=== PATIENT | female | born 1935 | race Caucasian/White ===

== ENCOUNTER 2021-11-06 13:54 | Inpatient (IN) ==
[2021-11-06 17:05] LABS: Bacteria,Urine Few per hpf (None-Few); Bilirubin,Urine Negative (Negative); Blood,Urine Large (Negative); Budding Yeast,Urine Few per hpf (None Seen); Clarity,Urine Turbid (Clear); Color,Urine Yellow (Yellow); Glucose,Urine (UA) 30 mg/dL (Normal); Ketones,Urine Trace mg/dL (Negative); Leukocyte Esterase,Urine Negative (Negative); Mucus,Urine Moderate per lpf (None-Few); Nitrite,Urine Negative (Negative); Protein,Urine 200 mg/dL (Neg-Trace); RBC,Urine 50-100 per hpf (0-3); Specific Gravity,Urine > 1.030 (1.010-1.025); Squamous Epithelial Cell,Urine Many per hpf (None-Few); Urobilinogen,Urine Normal (Normal)
[2021-11-06] MEDS ORDERED: Gabapentin 100 MG CAPSULE PO ONE (17:40)
[2021-11-06] MEDS ORDERED: *HR* OxyCODONE/APAP 7.5/325 TABLET PO STA (17:40)
[2021-11-06 17:41] LABS: Hematocrit 41.6 % (35.3-44.9); Hemoglobin 14.4 g/dL (11.5-15.4); Mean Corpuscular HGB Conc 34.6 g/dL (31.6-35.5); Mean Corpuscular Hemoglobin 32.1 pg (28.0-33.3); Mean Corpuscular Volume 92.9 fL (83.0-100.0); Mean Platelet Volume 9.9 fL (9.4-12.4); Platelet Count 232 K/mcL (140-400); Red Blood Count 4.48 M/mcL (3.82-4.97); Red Cell Distribution Width 13.1 % (11.5-14.5); White Blood Count 9.8 K/mcL (4.3-11.1)
[2021-11-06 19:07] LABS: Alanine Aminotransferase 27 Units/L (7-52); Albumin 3.8 g/dL (3.5-5.7); Albumin/Globulin Ratio 1.4 (1.1-2.2); Alkaline Phosphatase 57 Units/L (34-104); Aspartate Amino Transferase 89 Units/L (13-39); BUN/Creatinine Ratio 44 (6-26); Bilirubin,Direct 0.1 mg/dL (0.0-0.2); Bilirubin,Indirect 1.3 mg/dL (0.0-1.0); Bilirubin,Total 1.4 mg/dL (0.3-1.0); Blood Urea Nitrogen 45 mg/dL (8-23); Calcium 10.2 mg/dL (8.6-10.3); Carbon Dioxide 20 mEq/L (23-29); Chloride 110 mEq/L (98-107); Creatine Kinase 3877 Units/L (30-223); Globulin 2.7 g/dL (2.4-3.5); Glucose 165 mg/dL (70-105); Osmolality,Calculated 305 (280-300); Potassium 5.2 mEq/L (3.5-5.1); Sodium 140 mEq/L (136-145); Total Protein 6.5 g/dL (6.4-8.9); eGFR For African Americans > 60 (> 60); eGFR For Non-African Americans 51 (> 60)
[2021-11-06] MEDS ORDERED: 0.9 % Sodium Chloride 1,000 ML IVC ONE (20:15)
[2021-11-06] MEDS ORDERED: 0.9 % Sodium Chloride 500 ML IVC ONE (20:16)
[2021-11-06] MEDS: Iopamidol - 370 500 ML MLS IVP ONE ×2 (21:20→21:25)
[2021-11-06] MEDS ORDERED: Acetaminophen 325 MG TABLET PO PRN (22:23)
[2021-11-06] MEDS ORDERED: Melatonin 3 MG TABLET PO PRN (22:23)
[2021-11-06] MEDS ORDERED: Naloxone 0.4 MG/ML INJ IVP PRN (22:23)
[2021-11-06] MEDS ORDERED: Ondansetron 4 MG/2 ML VIAL IVP PRN (22:23)
[2021-11-06] MEDS: 0.9 % Sodium Chloride 1,000 ML IVC SCH (23:16)
[2021-11-07] MEDS: 0.9 % Sodium Chloride 1,000 ML IVC SCH ×2 (03:56→22:51)
[2021-11-07] MEDS ORDERED: 0.9 % Sodium Chloride 1,000 ML IVC ONE (05:41)
[2021-11-07 07:31] LABS: Basophils # 0.1 K/mcL (0.0-0.2); Basophils % 0.7 %; Eosinophils # 0.1 K/mcL (0.0-0.6); Eosinophils % 0.7 %; Hematocrit 37.4 % (35.3-44.9); Immature Granulocytes % 1.1 % (0-4); Lymphocytes # 2.1 K/mcL (0.6-4.6); Lymphocytes % 25.8 %; Mean Corpuscular HGB Conc 34.2 g/dL (31.6-35.5); Mean Corpuscular Hemoglobin 31.9 pg (28.0-33.3); Mean Corpuscular Volume 93.3 fL (83.0-100.0); Mean Platelet Volume 10.9 fL (9.4-12.4); Monocytes # 0.9 K/mcL (0.0-1.3); Monocytes % 11.3 %; Nucleated Red Blood Cells 0.2 /100 WBC (0); Platelet Count 183 K/mcL (140-400); Red Blood Count 4.01 M/mcL (3.82-4.97); Red Cell Distribution Width 13.2 % (11.5-14.5); Segmented Neutrophils % 60.4 %; White Blood Count 8.2 K/mcL (4.3-11.1)
[2021-11-07 07:32] LABS: Hemoglobin 12.8 g/dL (11.5-15.4)
[2021-11-07 08:19] LABS: Alanine Aminotransferase 27 Units/L (7-52); Albumin 3.2 g/dL (3.5-5.7); Albumin/Globulin Ratio 1.5 (1.1-2.2); Alkaline Phosphatase 54 Units/L (34-104); Aspartate Amino Transferase 80 Units/L (13-39); BUN/Creatinine Ratio 50 (6-26); Blood Urea Nitrogen 40 mg/dL (8-23); Calcium 8.5 mg/dL (8.6-10.3); Carbon Dioxide 18 mEq/L (23-29); Chloride 114 mEq/L (98-107); Creatine Kinase 2752 Units/L (30-223); Globulin 2.2 g/dL (2.4-3.5); Glucose 89 mg/dL (70-105); Osmolality,Calculated 303 (280-300); Phosphorous 2.2 mg/dL (2.7-4.5); Potassium 4.4 mEq/L (3.5-5.1); Sodium 142 mEq/L (136-145); Total Protein 5.4 g/dL (6.4-8.9); eGFR For African Americans > 60 (> 60); eGFR For Non-African Americans > 60 (> 60)
[2021-11-07] MEDS ORDERED: Perflutren Lipid Microsphere 1.3 ML in 0.9 % Sodium Chloride 8.7 ML IVP PRN (11:22)
[2021-11-07] MEDS ORDERED: *HR* OxyCODONE Immed Rel 5 MG TABLET PO PRN (14:02)
[2021-11-07] MEDS ORDERED: Sennosides/Docusate Sodium TABLET PO PRN ×2 (18:24→21:00)
[2021-11-07] MEDS: Isosorbide MONOnitrate (24 HR) 60 MG TAB.ER.24H PO SCH (18:36)
[2021-11-07] MEDS: polyethylene glycoL 3350 17 GM POWD.PACK PO SCH (18:36)
[2021-11-07] MEDS: Gabapentin 100 MG CAPSULE PO SCH (20:26)
[2021-11-07] MEDS: QUEtiapine Fumarate 25 MG TABLET PO SCH (23:11)
[2021-11-08] MEDS: Aspirin Enteric Coated 81 MG Tablet PO SCH (09:30)
[2021-11-08] MEDS: Gabapentin 100 MG CAPSULE PO SCH ×3 (09:30→20:43)
[2021-11-08] MEDS: Loratadine 10 MG TABLET PO SCH (09:30)
[2021-11-08] MEDS: Isosorbide MONOnitrate (24 HR) 60 MG TAB.ER.24H PO SCH (09:30)
[2021-11-08] MEDS: polyethylene glycoL 3350 17 GM POWD.PACK PO SCH (09:31)
[2021-11-08 11:00] LABS: BUN/Creatinine Ratio 42 (6-26); Blood Urea Nitrogen 28 mg/dL (8-23); Calcium 8.7 mg/dL (8.6-10.3); Carbon Dioxide 23 mEq/L (23-29); Chloride 109 mEq/L (98-107); Creatine Kinase 2882 Units/L (30-223); Glucose 149 mg/dL (70-105); Osmolality,Calculated 294 (280-300); Potassium 3.3 mEq/L (3.5-5.1); Sodium 138 mEq/L (136-145); eGFR For African Americans > 60 (> 60); eGFR For Non-African Americans > 60 (> 60)
[2021-11-08 12:57] LABS: Troponin I 0.28 ng/mL (< 0.04)
[2021-11-08] MEDS ORDERED: *HR* OxyCODONE/APAP 7.5/325 TABLET PO PRN (13:09)
[2021-11-08] MEDS: 0.9 % Sodium Chloride 1,000 ML IVC SCH ×2 (15:04→20:43)
[2021-11-08] MEDS: QUEtiapine Fumarate 25 MG TABLET PO SCH (20:43)
[2021-11-09] MEDS: 0.9 % Sodium Chloride 1,000 ML IVC SCH (00:12)
[2021-11-09 03:22] LABS: BUN/Creatinine Ratio 33 (6-26); Blood Urea Nitrogen 20 mg/dL (8-23); Calcium 8.4 mg/dL (8.6-10.3); Carbon Dioxide 21 mEq/L (23-29); Chloride 113 mEq/L (98-107); Creatine Kinase 1782 Units/L (30-223); Glucose 101 mg/dL (70-105); Osmolality,Calculated 293 (280-300); Potassium 3.3 mEq/L (3.5-5.1); Sodium 140 mEq/L (136-145); eGFR For African Americans > 60 (> 60); eGFR For Non-African Americans > 60 (> 60)
[2021-11-09] MEDS: Aspirin Enteric Coated 81 MG Tablet PO SCH (07:57)
[2021-11-09] MEDS: Isosorbide MONOnitrate (24 HR) 60 MG TAB.ER.24H PO SCH (07:57)
[2021-11-09] MEDS: Gabapentin 100 MG CAPSULE PO SCH ×3 (07:57→20:32)
[2021-11-09] MEDS: Loratadine 10 MG TABLET PO SCH (07:57)
[2021-11-09] MEDS: polyethylene glycoL 3350 17 GM POWD.PACK PO SCH (07:58)
[2021-11-09] MEDS ORDERED: Potassium Chloride Elixir 20 MEQ/15 ML UDC PO ONE (08:03)
[2021-11-09] MEDS: QUEtiapine Fumarate 25 MG TABLET PO SCH (20:32)
[2021-11-10] MEDS: 0.9 % Sodium Chloride 1,000 ML IVC SCH (01:55)
[2021-11-10 04:11] LABS: BUN/Creatinine Ratio 25 (6-26); Blood Urea Nitrogen 18 mg/dL (8-23); Calcium 8.3 mg/dL (8.6-10.3); Carbon Dioxide 21 mEq/L (23-29); Chloride 113 mEq/L (98-107); Glucose 116 mg/dL (70-105); Osmolality,Calculated 293 (280-300); Potassium 3.5 mEq/L (3.5-5.1); Sodium 140 mEq/L (136-145); eGFR For African Americans > 60 (> 60); eGFR For Non-African Americans > 60 (> 60)
[2021-11-10] MEDS: Gabapentin 100 MG CAPSULE PO SCH (08:11)
[2021-11-10] MEDS: Isosorbide MONOnitrate (24 HR) 60 MG TAB.ER.24H PO SCH (08:11)
[2021-11-10] MEDS: Loratadine 10 MG TABLET PO SCH (08:11)
[2021-11-10] MEDS: polyethylene glycoL 3350 17 GM POWD.PACK PO SCH (08:11)
[2021-11-10] MEDS: Aspirin Enteric Coated 81 MG Tablet PO SCH (08:11)
[2021-11-10] MEDS ORDERED: Moderna Covid-19 Vaccine 100MCG/0.5mL IM ONE (09:53)
[2021-11-10 10:21] VITALS: BP 132/74; PULSE 81; TEMP 98.3; O2SAT 94
== END 2021-11-10 14:26 | DRG 564 ==
LOC: 3ANU 13:54 → EMEROOARM 13:54 → SUATTDRO 21:13 → 3ANU 21:57
PROVIDERS: ADMIT Internal Medicine; ATTEND Registered Nurse